=== PATIENT | male | born 1935 | race Caucasian/White ===

== ENCOUNTER → 2019-01-05 09:58 | Outpatient (CLI) | payer MEDICARE, BC, SELFPAY ==
[2019-01-05 10:50] LABS: Add Manual Diff / Slide Review NO; Basophils Absolute Auto 100 /uL (0-100); Eosinophils Absolute Auto 200 /uL (0-450); Eosinophils Percent Auto 3.8 % (2-4); Hematocrit 43.2 % (41-53); Hemoglobin 14.7 g/dL (13.5-17.5); Lymphocytes Absolute Auto 1300 /uL (1100-4500); Lymphocytes Percent Auto 22.4 % (25-40); Mean Corpuscular Hemoglobin 32.3 PG (26-34); Mean Corpuscular Volume 95.1 fL (80-100); Monocytes Absolute Auto 600 /uL (0-900); Monocytes Percent Auto 10.3 % (3-14); Neutrophils Absolute Auto 3500 /uL (1500-7000); Neutrophils Percent Auto 62.5 % (50-75); Platelet Count 176 X10^3/uL (150-400); Red Blood Cell Count 4.55 X10^6/uL (4.5-5.9); Red Cell Distribution Width 13.8 % (11.6-14.8); White Blood Cell Count 5.7 X10^3/uL (4.5-11.0)
[2019-01-05 10:57] LABS: Alanine Aminotransferase 17 IU/L (21-72); Albumin 4.5 g/dL (3.5-5.0); Albumin Globulin Ratio 1.5 (1.0-2.8); Alkaline Phosphatase 55 U/L (38-126); Aspartate Aminotransferase 23 IU/L (17-59); BUN Creatinine Ratio 23.3 (6-22); Bilirubin Total 0.6 mg/dL (0.2-1.3); Blood Urea Nitrogen 21 mg/dL (9-20); Calcium 9.4 mg/dL (8.4-10.2); Carbon Dioxide 27 mmol/L (22-32); Chloride 100 mmol/L (98-107); Cholesterol 141 mg/dL (140-199); Estimated Glomerular Filt Rate > 60.0 mL/min (>60); Glucose 103 mg/dL (80-110); HDL Cholesterol 50 mg/dL (40-60); HEMOLYSIS 19 (0-50); LDL Cholesterol Calculated 81 mg/dL (<100); Potassium 4.7 mmol/L (3.4-5.1); Sodium 136 mmol/L (137-145); Total Protein 7.5 g/dL (6.3-8.2); Triglycerides 51 mg/dL (35-150)
[2019-01-05 11:27] LABS: TSH w/ Reflex to FT4 1.67 uIU/mL (0.47-4.68)
== END ==
PROVIDERS: Family Provider Family Medicine; PCP Family Medicine; Visit Provider Family Medicine
DX: E78.5 Hyperlipidemia, unspecified (principal); I10 Essential (primary) hypertension; N40.0 Benign prostatic hyperplasia without lower urinary tract symptoms
CPT/HCPCS: 36415; 80053; 80061; 84443; 85025

== ENCOUNTER → 2020-10-17 09:38 | Outpatient (CLI) | payer MEDICARE, BC, SELFPAY ==
--- NOTE | 2020-10-17 09:41 | DI.RAD.S_ITS ---
PROCEDURE: XR HIP W PEL IF DONE LT 2V INDICATIONS: hip and back pain TECHNIQUE: AP pelvis with lateral view(s) of the left hip(s). [facility], [facility], [facility], XR LUMBAR SPINE 2-3V, 10/17/2020, 10:01. FINDINGS: Bones: No fractures or dislocations. Pelvic ring appears intact. No suspicious bony lesions. There is lkqsoptu-cp-srlkpq hip joint degeneration bilaterally. 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 No suspicious soft tissue calcifications. IMPRESSION: Sfyksnzh-kb-syhizw hip joint degeneration bilaterally. Dictated by: Nia Benítez M.D. on 10/17/2020 at 16:47 Approved by: Nia Benítez M.D. on 10/17/2020 at 16:48
--- NOTE | 2020-10-17 09:41 | DI.RAD.S_ITS ---
PROCEDURE: XR FOOT RT MIN 3V INDICATIONS: left foot pain TECHNIQUE: 3 views of the foot were acquired. COMPARISON: [facility], CR, ANKLE 3 VIEWS RIGHT, 04/05/2015, 10:38. FINDINGS: Bones: No fractures or dislocations. No suspicious bony lesions. Calcaneal spurring. Nojk-rr-hzosefys joint space narrowing in multiple intertarsal and interphalangeal joints. Mild periarticular bony erosion in navicula and cuneiform. Osteopenia. Soft tissues: No tibiotalar joint effusion. Achilles tendon appears normal. IMPRESSION: 1. Bony erosion is present suggesting inflammatory arthritis. Recommend clinical correlation. Dictated by: Nia Benítez M.D. on 10/17/2020 at 18:06 Approved by: Nia Benítez M.D. on 10/17/2020 at 18:09
--- NOTE | 2020-10-17 09:41 | DI.RAD.S_ITS ---
PROCEDURE: XR LUMBAR SPINE 2-3V INDICATIONS: hip and back pain TECHNIQUE: 3 views of the lumbar spine were acquired. COMPARISON: [facility], , L-SPINE 2-3 VIEWS, 12/26/2011, 8:10. FINDINGS: Bones: 5 [id number]-fig-cctybqz vertebrae are present. There is mild scoliosis but normal bony alignment. No vertebral body compression fractures. No suspicious bony lesions. Increasing degenerative disc disease since the last exam, now severe at L4-L5, moderate at L2-L3, and mild at other levels. There is moderate facet arthropathy at L3-L4, L4-L5 and L5-S1. Soft tissues: Overlying bowel gas pattern is normal. No suspicious soft tissue calcifications. IMPRESSION: Degenerative disc and facet disease in lumbar spine. There is interval progression since the last exam. Dictated by: Nia Benítez M.D. on 10/17/2020 at 10:23 Approved by: Nia Benítez M.D. on 10/17/2020 at 10:25
[2020-10-17 10:44] LABS: Add Manual Diff / Slide Review NO; Basophils Absolute Auto 100 /uL (0-100); Basophils Percent Auto 0.9 % (0-2); Eosinophils Absolute Auto 300 /uL (0-450); Eosinophils Percent Auto 5.3 % (2-4); Hematocrit 41.6 % (41-53); Lymphocytes Absolute Auto 1800 /uL (1100-4500); Lymphocytes Percent Auto 27.3 % (25-40); Mean Corpuscular HGB Conc 33.7 % (30-36); Mean Corpuscular Hemoglobin 32.5 PG (26-34); Mean Corpuscular Volume 96.6 fL (80-100); Monocytes Absolute Auto 600 /uL (0-900); Monocytes Percent Auto 8.7 % (3-14); Neutrophils Absolute Auto 3800 /uL (1500-7000); Neutrophils Percent Auto 57.8 % (50-75); Platelet Count 195 X10^3/uL (150-400); Red Blood Cell Count 4.31 X10^6/uL (4.5-5.9); Red Cell Distribution Width 13.5 % (11.6-14.8); White Blood Cell Count 6.5 X10^3/uL (4.5-11.0)
[2020-10-17 11:13] LABS: Alanine Aminotransferase 17 IU/L (<50); Albumin 4.4 g/dL (3.5-5.0); Albumin Globulin Ratio 1.5 (1.0-2.8); Alkaline Phosphatase 67 U/L (38-126); Aspartate Aminotransferase 24 IU/L (17-59); Bilirubin Total 0.5 mg/dL (0.2-1.3); Blood Urea Nitrogen 25 mg/dL (9-20); Calcium 9.2 mg/dL (8.4-10.2); Carbon Dioxide 29 mmol/L (22-32); Chloride 100 mmol/L (98-107); Estimated Glomerular Filt Rate > 60.0 mL/min (>60); Globulin 2.9 g/dL (1.7-4.1); Glucose 105 mg/dL (80-110); HEMOLYSIS < 15 (0-50); Potassium 4.9 mmol/L (3.4-5.1); Sodium 136 mmol/L (137-145); Total Protein 7.3 g/dL (6.3-8.2)
[2020-10-17 11:44] LABS: Prostate Specific Antigen Scrn 7.01 ng/mL (0.1-4.0); TSH w/ Reflex to FT4 1.93 uIU/mL (0.47-4.68)
== END ==
PROVIDERS: Family Provider Family Medicine; PCP Family Medicine; Referring Provider Family Medicine; Visit Provider Family Medicine
DX: M25.552 Pain in left hip (principal); Z12.5 Encounter for screening for malignant neoplasm of prostate; I10 Essential (primary) hypertension; M54.5 Low back pain; M79.672 Pain in left foot; E78.5 Hyperlipidemia, unspecified; N40.0 Benign prostatic hyperplasia without lower urinary tract symptoms
CPT/HCPCS: 36415; 72100; 73502; 73630; 80053; 84443; 85025; G0103

== ENCOUNTER → 2023-08-27 11:41 | Outpatient (CLI) | payer MEDICARE, BC, SELFPAY | PROVIDERS: Family Provider Family Medicine; PCP Family Medicine; Visit Provider Specialist | DX: R31.9 Hematuria, unspecified (principal); R33.9 Retention of urine, unspecified | CPT/HCPCS: 51702; 87086 ==

== ENCOUNTER → 2023-09-24 10:31 | Outpatient (CLI) | payer MEDICARE, BC, SELFPAY | PROVIDERS: Family Provider Family Medicine; PCP Family Medicine; Visit Provider Specialist | DX: R31.9 Hematuria, unspecified (principal); R33.9 Retention of urine, unspecified | CPT/HCPCS: 51702; 87077; 87086; 87186 ==

== ENCOUNTER → 2023-11-25 11:19 | Outpatient (CLI) | payer MEDICARE, BC, SELFPAY | PROVIDERS: Family Provider Family Medicine; PCP Family Medicine; Visit Provider Specialist | DX: R33.9 Retention of urine, unspecified (principal); N40.3 Nodular prostate with lower urinary tract symptoms | CPT/HCPCS: 87077; 87086; 87147 ==

== ENCOUNTER → 2024-03-23 10:51 | Outpatient (CLI) | payer MEDICARE, BC, SELFPAY | PROVIDERS: Family Provider Family Medicine; PCP Family Medicine; Visit Provider Urology | DX: N40.3 Nodular prostate with lower urinary tract symptoms (principal) | CPT/HCPCS: 87077; 87086 ==

== ENCOUNTER → 2024-04-26 10:35 | Outpatient (CLI) | payer MEDICARE, BC, SELFPAY ==
[2024-04-26 12:20] LABS: Prostate Specific Antigen < 0.064 ng/mL (0.10-4.00)
== END ==
PROVIDERS: Family Provider Family Medicine; PCP Family Medicine; Referring Provider Urology; Visit Provider Urology
DX: R97.20 Elevated prostate specific antigen [PSA] (principal)
CPT/HCPCS: 36415; 84153

== ENCOUNTER → 2024-04-27 10:40 | Outpatient (CLI) | payer MEDICARE, BC, SELFPAY | PROVIDERS: Family Provider Family Medicine; PCP Family Medicine; Visit Provider Urology | DX: R33.9 Retention of urine, unspecified (principal); N40.3 Nodular prostate with lower urinary tract symptoms | CPT/HCPCS: 87086 ==